=== PATIENT | male | born 1950 | race Caucasian/White ===

== ENCOUNTER 2017-09-17 17:09 | Emergency (ER) | payer MEDICARE ==
[~2017-09-17] VITALS: Ht 165.1 cm; Wt 59.0 kg
[~2017-09-17 17:09] MED LIST: GABAPENTIN300 MG PO; HYDROCHLOR12.5 MG/CA PO; HYDROCODONE/ACE1 TAB PO; LISINOPRIL10 MG PO; METO50TA52 PO
[2017-09-17] MEDS ORDERED: CLEOCIN150 MG PO (17:26)
[2017-09-17 17:41] VITALS: BP 166/99
== END 2017-09-17 17:47 | disposition home or self-care (01) ==
LOC: ED 17:09
DX: S50.812A Abrasion of left forearm, initial encounter (principal); L03.114 Cellulitis of left upper limb; R22.32 Localized swelling, mass and lump, left upper limb; W22.09XA Striking against other stationary object, initial encounter; Y93.H3 Activity, building and construction; Y92.61 Building [any] under construction as the place of occurrence of the external cause

== ENCOUNTER 2018-06-17 16:48 | Emergency (ER) | payer MEDICARE ==
[~2018-06-17] VITALS: Ht 165.1 cm; Wt 59.0 kg
[~2018-06-17 16:48] MED LIST changes: +CLEOCIN150 MG PO
[2018-06-17 17:54] VITALS: BP 169/93
== END 2018-06-17 17:54 | disposition left against medical advice (07) ==
LOC: ED 16:48
DX: M54.2 Cervicalgia (principal); I10 Essential (primary) hypertension; M54.9 Dorsalgia, unspecified; F17.290 Nicotine dependence, other tobacco product, uncomplicated; Z91.19 Patient's noncompliance with other medical treatment and regimen

== ENCOUNTER 2023-12-22 15:14 | Emergency (ER) | payer MEDICARE ==
[~2023-12-22] VITALS: Ht 165.1 cm; Wt 54.0 kg
[2023-12-22 16:04] VITALS: BP 151/76
[2023-12-22] MEDS ORDERED: ORPHENADRINE CITRATE 30 MG/ML AMP IM ONE ×2 (16:20→16:45)
[2023-12-22] MEDS ORDERED: KETOROLAC TROMETHAMINE 30 MG/ML SDV IM ONE (16:25)
[2023-12-22] MEDS ORDERED: predniSONE 20 MG/TAB PO ONE (16:25)
[2023-12-22] MEDS ORDERED: HYDROcodone/Acetaminophen 1 COMBO TAB PO ONE (16:25)
[2023-12-22 16:30] VITALS: BP 128/73
[2023-12-22] MEDS ORDERED: NAPROXEN500 MG PO (18:56)
[2023-12-22] MEDS ORDERED: PREDNISONE20 MG PO (18:56)
[2023-12-22] MEDS ORDERED: METHOCARBAMOL500 MG PO (18:56)
[2023-12-22] MEDS ORDERED: PERCOCET 5/325M1 TAB PO (18:56)
[2023-12-22 18:59] VITALS: BP 128/73
== END 2023-12-22 19:14 | disposition home or self-care (01) ==
LOC: ED 15:14
DX: R07.81 Pleurodynia (principal); I10 Essential (primary) hypertension; F17.200 Nicotine dependence, unspecified, uncomplicated; Z87.81 Personal history of (healed) traumatic fracture; Z98.890 Other specified postprocedural states; Z91.81 History of falling